=== PATIENT | male | born 1990 | race Caucasian/White ===

== ENCOUNTER 2020-08-22 22:13 | Emergency (ER) | payer OTHER, SELFPAY ==
[2020-08-22 22:13] VITALS: BP 118/57; PULSE 89; RESP 16; TEMP 36.4; O2SAT 99; BMI 19.9
[2020-08-22] MEDS: Lidocaine 1% (20 ml mdv) 20 ML Vial INFILT (22:44)
--- NOTE | 2020-08-22 23:03 | EDS_ITS ---
HPI History of Present Illness Chief Complaint: Laceration Informant: patient Narrative Narrative: Patient presents with a laceration to his scalp. 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 No loss of conscious. No nausea vomiting. He denies any neurologic symptoms. PFSH PFSH no medical history Home Medications NK 08/22/20 [History Last Taken Unknown] Allergy/AdvReac Type Severity Reaction Status Date / Time No Known Allergies Allergy Verified 08/22/20 22:15 no surgical history (Noncontributory) Social History (Updated 08/22/20 @ 23:[address] Zack Guerrero, DO) Smoking Status: Never smoker substance use type: does not use ROS ROS ED Constitutional Constitutional ED: Denies chills or weight loss Eyes Eyes: Denies change in vision or diplopia ENT ENT ED: Denies ear pain, rhinorrhea or sore throat Cardiovascular Cardiovascular: Denies chest pain, orthopnea, palpitations or racing heartbeat Respiratory/Chest Respiratory/Chest: Denies cough, dyspnea or orthopnea Gastrointestinal Gastrointestinal: Denies abdominal pain, diarrhea, nausea or vomiting Genitourinary Genitourinary ED: Denies dysuria, hematuria or urinary frequency Musculoskeletal Musculoskeletal: Denies arthralgias or myalgias Integumentary Reports other Details: See history of present illness ; Denies abscess or rash Neurologic Neurologic: Denies headache(s) or weakness Psychiatric Psychiatric: Denies anxiety, depression, suicidal ideation or suicidal thoughts Endocrine Endocrinology: Denies polydipsia, polyphagia or polyuria Allergic/Immunologic Allergic/Immunologic ED: Denies mouth swelling, tongue swelling or urticaria EXAM Physical Exam Const Vital Signs: 08/22/20 22:13 Temperature 97.6 F L Temperature Source Temporal Pulse Rate 89 Respiratory Rate 16 Blood Pressure 118/57 L Blood Pressure Mean 77 Pulse Ox 99 Oxygen Delivery Method Room Air Positive well nourished and well developed General Appearance ED: well developed HEENT Reports normocephalic, head/scalp atraumatic and moist mucous membranes HEENT Narrative: There is a 4 cm lightening bolt-like laceration to the vertex of his scalp. No active bleeding. trauma Eyes PERRL and EOMs intact bilaterally Neck no lymphadenopathy, supple and no JVD Resp normal respiratory effort and clear to auscultation bilaterally Cardio regular rate, regular rhythm and no murmurs GI normal to inspection, nondistended, normoactive bowel sounds and non-tender Palpation: soft Back/Spine no CVA tenderness and normal ROM Extremity normal to inspection General Extremety ED: Negative for edema General Extremity: Negative for edema Neuro oriented x3 and CN's II-XII intact bilaterally Sensorium / Orientation: alert Motor Exam: strength 5/5 throughout Psych mental status grossly normal Mood & Affect: Negative for depressed or tearful Skin no rashes or lesions noted and no wounds PROC Procedures Lacerations Scalp laceration: Comment: Wound was locally anesthetized using 1% lidocaine. Was washed with Shur-Clens and explored. A total of 5 simple interrupted 4-0 Ethilon sutures were placed. Good wound edge approximation was obtained. Bleeding cont rolled. MDM MDM MDM Narrative Medical decision making narrative: A 4 cm laceration was sutured. Please see the suture note. Wound care discussed with patient. Stitches will need to be removed in 5 to 7 days. Discharge Plan Triage Chief Complaint: Laceration ED Provider: Zack Guerrero Dx/Rx/DC Orders Clinical Impression: Laceration of scalp Instructions: ED Laceration: All Closures Prescriptions: No Action NK RF: 0 Referrals: Clinic,NOW [NON-STAFF] - 7 Days for suture removal Activity Restrictions/Additional Instructions: You may follow-up with primary care provider of your choice to establish primary care. Stitches will need to be removed in 7 days. Now clinic above is also available or he may return here to the emergency department Disposition Disposition: Home, self care
[2020-08-22 23:19] VITALS: BP 112/57; PULSE 74; RESP 17; O2SAT 98
== END 2020-08-22 23:20 | disposition home or self-care (01) ==
LOC: ED 23:16
PROVIDERS: Emergency Provider Emergency Medicine
DX: S01.01XA Laceration without foreign body of scalp, initial encounter (principal); W26.8XXA Contact with other sharp object(s), not elsewhere classified, initial encounter; Y93.89 Activity, other specified; Y92.009 Unspecified place in unspecified non-institutional (private) residence as the place of occurrence of the external cause; Y99.8 Other external cause status
CPT/HCPCS: 12002; 99283

== ENCOUNTER 2021-01-03 15:04 | Emergency (ER) | payer OTHER, SELFPAY ==
[2021-01-03 15:06] VITALS: BP 112/87; PULSE 83; RESP 18; TEMP 35.8; O2SAT 95; BMI 21.3
--- NOTE | 2021-01-03 16:36 | ED.VIS.LOWEX ---
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 States he recently started this job and he works ten+ miles per day, carrying a pack that weighs 40-50 pounds when it is full. He states he is unsure if he twisted his ankle/leg at 1 point or not, if he did he did not notice major pain immediately. He states he cannot remember because he does so much walking and stepping in and out of yards in areas. He does not have any medical problems. No history of blood clots. No swelling in the leg. No periods of immobilization recently. No history of clotting disorder in him or the family that he knows of. No fevers, chills, other systemic symptoms. He denies any tingling in the toes. The problem really is not of the ankle or the knee, it is in between and worse distally, and laterally, feels like the pain is in between the 2 bones. It is okay when he rests and just a little sore, but he really feels it when he walks. PFSH PFSH Medical History no medical history no medical history Home Medications NK 08/22/20 [History Last Taken Unknown] Allergy/AdvReac Type Severity Reaction Status Date / Time No Known Allergies Allergy Verified 01/03/21 15:05 Surgical History no surgical history no surgical history Social History Smoking Status: Never smoker substance use type: does not use ROS ROS ED Constitutional Constitutional ED: Denies chills or fever(s) Cardiovascular Cardiovascular: Denies chest pain at rest, chest pain with activity or dyspnea Respiratory/Chest Respiratory/Chest: Denies cough or dyspnea on exertion Musculoskeletal Musculoskeletal: Reports extremity pain; Denies neck pain Integumentary Denies Abrasions, rash or wounds Neurologic Neurologic: Denies paresthesias or weakness EXAM Physical Exam Const Vital Signs: 01/03/21 15:06 Temperature 96.5 F L Temperature Source Temporal Pulse Rate 83 Respiratory Rate 18 Blood Pressure 112/87 H Blood Pressure Mean 95 Pulse Ox 95 Oxygen Delivery Method Room Air Positive well nourished and well developed General Appearance ED: well developed and NAD Neck full ROM and supple Back/Spine normal ROM and normal to inspection Extremity Extremity Narrative: Diffusely tender in the distal half of the left lower leg but not including the ankle joint, most of the tenderness seems to be in the area of the soleus. He does have tenderness laterally, difficult to pinpoint if it is the fibula or soft tissues over/around it. No significant discomfort with forced dorsiflexion of the foot. All compartments soft and nondistended and symmetric. Intact dorsalis pedis pulse. Full range of motion all joints without any difficulty. No edema. No palpable cords. No focal tenderness in the gastrocnemius. No tenderness at the knee or proximally. Neuro oriented x3, no focal motor deficits and no sensory deficits noted Sensorium / Orientation: alert Psych mental status grossly normal and thought process normal Skin no wounds Rashes: no rashes MDM MDM MDM Narrative Medical decision making narrative: I think this is musculoskeletal. Differential includes muscle strain/overuse, stress fracture of the tibia, fibula, or both, I do not think this is vascular such as a DVT. I discussed this with him, he is in agreement it feels musculoskeletal. I agree the history is consistent with that as well as the exam. X-rays of the tibia/fibula were obtained. X-rays are unremarkable. Rest, anti-inflammatories, ice as needed is advised. He was given a work note saying so. If it improves after a few days, I think it is more likely to be something simple and straightforward such as a muscle ache. As I discussed with the patient negative x-rays within 1 week do not rule out the possibility of stress fracture and if he is no significant pain after about a week or so, he needs to follow-up and potentially have advanced imaging. He understands this. Radiography Diagnostic Testing: Radiology Impression Tibia/Fibula X-Ray 01/03/21 16:40 IMPRESSION: Normal x-ray examination of the tibia and fibula. Electronically Signed: Winston Garcia DO at 17:19 EDT Tel [phone], Service support , Discharge Plan Triage Chief Complaint: Lower Extremity Injury ED Provider: Anthony Mancilla Dx/Rx/DC Orders Clinical Impression: Acute pain of left lower extremity Instructions: Cunningham Splints, ED Muscle Strain, Extremity Prescriptions: No Action NK RF: 0 Stand Alone Forms: Work Status Form Primary Care Provider: Care Physician,No Primary Referrals: Didier Peck MD [STAFF PHYSICIAN] - 1 Week if not improving Care Physician,No Primary [Primary Care Provider] - Disposition Disposition: Home, Self Care
--- NOTE | 2021-01-03 16:40 | RAD_ITS ---
STUDY: X-RAY - LEFT TIBIA AND FIBULA REASON FOR EXAM: Male, 30 years old. Lower leg pain. Stands all day at work. TECHNIQUE: AP and lateral view(s) of the tibia and fibula were obtained. COMPARISON: None. FINDINGS: Normal visualized tibia. Normal visualized fibula. There is no acute fracture, dislocation or destructive osseous pathology. The knee and ankle are grossly normal. The soft tissue structures are unremarkable. RAD/Tibia & Fibula 2 Views IMPRESSION: Normal x-ray examination of the tibia and fibula. Electronically Signed: Winston Garcia DO at 17:19 EDT Tel [phone], Service support ,
== END 2021-01-03 18:20 | disposition home or self-care (01) ==
PROVIDERS: Emergency Provider Emergency Medicine
DX: M79.662 Pain in left lower leg (principal)
CPT/HCPCS: 73590; 99281; 99282

== ENCOUNTER 2023-06-19 13:27 | Emergency (ER) | payer OTHER, SELFPAY ==
[2023-06-19 13:29] VITALS: BP 140/97; PULSE 99; RESP 18; TEMP 36.1; O2SAT 97; BMI 24.4
--- NOTE | 2023-06-19 13:51 | EDS_ITS ---
HPI History of Present Illness Chief Complaint: Back Detail of Chief Complaint: Paresthesias of lower extremities Informant: patient Narrative Narrative: Patient presents to the emergency department with complaint of numbness and tingling to both feet and recently to the left hand thumb and index and middle finger. Symptoms started about 5 days ago. Patient states worse with standing and walking. Patient delivers mail for living. Patient states that yesterday he felt like his legs were weak and had to stop and hold onto things. At rest in bed really does not have any paresthesias. He denies any significant back pain. Denies pain radiating down his legs. He just describes more of a muscle soreness or aching in his upper legs. He denies any new medications. He states he had a sinus infection a couple weeks ago but has been fine since then. Denies fever or chills or sweats. No falls or injuries. PFSH PFS Medical History no medical history Home Medications NK 08/22/20 [History Last Taken Unknown] Allergy/AdvReac Type Severity Reaction Status Date / Time No Known Allergies Allergy Verified 06/19/23 13:28 Social History Smoking Status: Never smoker substance use type: does not use ROS ROS ED Review of Systems ROS Unobtainable: other Constitutional Constitutional ED: Reports lethargy; Denies chills, fever(s), sweats or weight loss Eyes Eyes: Denies blurry vision, change in vision or diplopia ENT ENT ED: Denies rhinorrhea or sore throat Cardiovascular Cardiovascular: Denies chest pain, orthopnea or racing heartbeat Respiratory/Chest Respiratory/Chest: Denies cough, dyspnea, dyspnea on exertion, orthopnea or sputum Gastrointestinal Gastrointestinal: Denies abdominal pain, diarrhea, nausea or vomiting Genitourinary Genitourinary ED: Denies dysuria, hematuria or urinary frequency Musculoskeletal Musculoskeletal: Reports myalgias; Denies arthralgias, back pain or neck pain Integumentary Denies abscess, Abrasions or rash Neurologic Neurologic: Reports paresthesias; Denies headache(s) or weakness Psychiatric Psychiatric: Denies anxiety, depression or suicidal thoughts Endocrine Endocrinology: Denies polydipsia, polyphagia or polyuria Hematologic/Lymphatic Hematologic/Lymphatic: Denies easy bleeding, easy bruising or lymphadenopathy Allergic/Immunologic Allergic/Immunologic ED: Denies mouth swelling, tongue swelling or urticaria EXAM Physical Exam Const Vital Signs: 06/19/23 13:29 Temperature 97.0 F L Temperature Source Temporal Pulse Rate 99 Respiratory Rate 18 Blood Pressure 140/97 H Blood Pressure Mean 111 Pulse Ox 97 Oxygen Delivery Method Room Air Positive well nourished and well developed General Appearance ED: well developed and NAD HEENT Reports TM's clear and moist mucous membranes normocephalic and atraumatic; Negative for trauma or tenderness Tympanic Membrane ED: Yes TM's clear Eyes PERRL and EOMs intact bilaterally General Eye ED: Negative for pale conjunctiva or scleral icterus Neck no lymphadenopathy, supple and no JVD General: Negative for tenderness Chest Wall inspection of chest normal and palpation of chest normal Chest: Negative for tenderness Resp normal respiratory effort and clear to auscultation bilaterally Effort and Inspection: Negative for respiratory distress or pain with movement Auscultation: Negative for rhonchi, wheezes or diminished lung sounds Cardio regular rate, regular rhythm, S1 normal heart sound, S2 normal heart sound and no murmurs Peripheral Pulses: pulses 2+ throughout GI normal to inspection, nondistended, normoactive bowel sounds, soft to palpation, non-tender, non-distended and no masses Back/Spine no CVA tenderness and no thoracic nor lumbar tenderness Extremity normal to inspection General Extremety ED: Negative for edema General Extremity: Negative for edema Neuro oriented x3, CN's II-XII intact bilaterally, no sensory deficits noted and gait normal Sensorium / Orientation: awake, alert, oriented to person, oriented to place and oriented to time Motor Exam: strength 5/5 throughout and strength abnormal Psych mental status grossly normal Skin no rashes or lesions noted and no wounds MDM MDM MDM Narrative Medical decision making narrative: Patient presents with paresthesias to his feet and occasionally to his left hand. No falls or injuries. 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 Minimal back discomfort. No weakness in the extremities but does complain of some muscle cramping and pain in the upper thighs and hamstrings. Patient denies recent illness. CBC with differential normal white count 7.4 with hemoglobin 16. Chemistries were unremarkable. BUN and creatinine were normal. Potassium and calcium and magnesium all were normal. Minimal elevation in his AST of 41 and ALT of 70. Alk phos was normal at 77. Total CPK was 629. Cli nically he looks well. Etiology of his paresthesias unclear. I did do COVID flu and RSV testing which was negative. Will refer to primary care physician for follow-up. Advised to return if condition should worsen anyway. Lab Data Attestation: I reviewed the patient's lab results. Labs: Laboratory Results - last 24 hr 06/19/23 13:55 WBC 7.4 RBC 5.36 Hgb 16.1 Hct 47.6 MCV 88.8 MCH 30.0 MCHC 33.8 RDW Std Deviation 41.5 RDW Coeff of Last 12.8 Plt Count 264 MPV 9.3 Immature Gran % (Auto) 0.400 Neut % (Auto) 50.9 Lymph % (Auto) 37.3 [place] % (Auto) 8.5 Eos % (Auto) 2.4 Baso % (Auto) 0.5 Absolute Neuts (auto) 3.7 Absolute Lymphs (auto) 2.75 Nucleated RBC % 0 Sodium 139 Potassium 4.4 Chloride 106 Carbon Dioxide 31.0 Anion Gap 2 L BUN 13 Creatinine 0.83 Estim Creat Clear Calc 158.32 Est GFR (MDRD) Af Amer 139 Est GFR (MDRD) Non-Af 115 BUN/Creatinine Ratio 15.7 Glucose 97 Calcium 9.3 Magnesium 2.2 Total Bilirubin 0.60 AST 41 H ALT 70 H Alkaline Phosphatase 77 Total Creatine Kinase 629 H Total Protein 7.6 Albumin 3.8 Globulin 3.8 Albumin/Globulin Ratio 1.0 Discharge Plan Triage Chief Complaint: Back ED Provider: Samanta Massey Dx/Rx/DC Orders Clinical Impression: Myalgia, Paresthesias Instructions: ED Myalgias, ED Paraesthesias Prescriptions: No Action NK Primary Care Provider: Care Physician,No Primary Referrals: John Caldwell MD [Med Staff - Active Staff] - 3-5 Days Care Physician,No Primary [Primary Care Provider] - Disposition Disposition: Home, Self Care
[2023-06-19 14:05] LABS: Absolute Lymphocyte Count 2.75 X10^3/uL (0.83-4.51); Absolute Neutrophil Count 3.7 X10^3/uL (2.0-7.7); Basophil# 0.04 X10^3/uL; Basophil% 0.5 % (0-1); Eosinophil# 0.18 X10^3/uL; Eosinophils% 2.4 % (0-5); Hematocrit 47.6 % (40-54); Hemoglobin 16.1 g/dL (13.0-16.5); Lymphocyte # 2.75 X10^3/ul (0.83-4.51); Lymphocyte % 37.3 % (19-41); Mean Corp Hgb Conc 33.8 g/dL (32-36); Mean Corpuscular Volume 88.8 fL (80-94); Mean Platelet Vol. 9.3 fl (6.2-12.0); Monocyte# 0.63 X10^3/uL; Monocyte% 8.5 % (0-10); NRBC Flagged by Analyzer 0 % (0-5); Neutrophil # 3.74 X10^3/uL (2.7-7.7); Neutrophil % 50.9 % (47-70); Platelet Count 264 K/mm3 (150-450); RBC Distribution Width CV 12.8 % (11.6-14.6); RBC Distribution Width SD 41.5 fl (35.1-43.9); Red Blood Count 5.36 M/mm3 (4.6-6.2); White Blood Count 7.4 K/mm3 (4.4-11.0)
[2023-06-19 14:26] LABS: AST(SGOT) 41 U/L (15-37); Alanine Aminotransfer ALT/SGPT 70 U/L (16-61); Albumin, Serum 3.8 g/dL (3.2-5.0); Alkaline Phosphatase 77 U/L (45-117); Anion Gap 2 (5-15); BUN 13 mg/dL (7-18); BUN/Creat Ratio 15.7 RATIO (10-20); CPK Total, Creatine Kinase 629 U/L (39-308); Calcium,Total 9.3 mg/dL (8.5-10.1); Chloride 106 mmol/L (98-107); Creatinine, Serum 0.83 mg/dL (0.70-1.30); EST Glomerular Filtration Rate 115 mL/min (>60); Est Glom Filt Rate - Afr Amer 139 mL/min (>60); Estimated Creatinine Clearance 158.32 ml/min; Globulin 3.8 g/dL (2.2-4.2); Glucose 97 mg/dL (74-106); Magnesium 2.2 mg/dL (1.6-2.6); Potassium 4.4 mmol/L (3.5-5.1); Protein, Total 7.6 g/dL (6.4-8.2); Sodium Level 139 mmol/L (136-145)
[2023-06-19 15:59] VITALS: BP 132/74; PULSE 72; RESP 16; TEMP 36.3; O2SAT 99
--- OUTSIDE RECORDS SUMMARY | 2023-06-19 21:47 | XMS RPT_ITS | CCD ---
Author Name Unknown Address [address] [place] [id number] Organization [facility] Care Team Providers Care Health Director Name Role Phone CAMILA HUNT Primary Care Unavailable MARC RUELAS Referring Unavailable CAMILA HUNT Referring Unavailable CAMILA HUNT Primary Care Unavailable MARC RUELAS Attending Unavailable Problems Problem Classification Problem Date Documented Da te Episodic/Chronic Other connective tissue disease (1 source) Plantar fascial fibromatosis; Translations: [Plantar fasciitis of left foot] Onset: 10-31-2022 Episodic Results Test Name Value Interpretation Reference Range Facil ity Encounters Encounter Date Encounter Type Care Provider Facility Start: 10-31-2022 End: 10-31-2022 ambulatory CAMILA HUNT Facility:[facility] Payers Date Payer Category Payer Private Health Insurance [id number] Progress note 10-31-2022 Note Date & Type Note Facility 10-31-2022 Note HNO ID: [id number] Author: Nadeen Cruz RT(R) Service: Radiology Author Type: Technologist Type: Progress Notes Filed: 10/31/2022 9:30 AM Note Text: Radiology Service Progress Note PATIENT NAME: Guilherme Florence DATE OF SERVICE: October 31, 2022 TIME: 9:22 AM PATIENT IDENTITY VERIFICATION COMPLETED USING TWO (2) IDENTIFIERS: Name and Date of confirmed by patient verbally. FALL SCREENING: Has the patient had 2 falls in the last year or 1 fall with injury or currently using an Ambulatory Assistive Device (Walker, Cane, Wheelchair, Crutches, etc.)? No PATIENT GENDER DATA: Male PATIENT RELEVANT IMPLANT DATA REVIEWED: Yes RADIOLOGY DEPARTMENT: General X-ray: Exam(s) Completed: Lower Extremity X-Ray(s): Foot, Left and Wt. Bearing PERIPHERAL IV DATA: Not applicable SIGNED BY: RT Alicia(R) October 31, 2022 9:22 AM [facility] Progress note 10-31-2022 Note Date & Type Note Facility 10-31-2022 Note HNO ID: [id number] Author: Marc Ruelas Service: ? Author Type: Physician Type: Progress Notes Filed: 10/31/2022 9:20 AM Note Text: Consultation requested by Dr. Hunt for an opinion regarding left heel pain. My final recommendations will be communicated back to the requesting physician by way of shared Medical record or letter to requesting physician via US mail. Initial Podiatric Office Visit: Chief Complaint: This 32 year old male who presents with chief complaint:left heel pain HPI Patient presents to clinic for evaluation of left foot Patient has plantar medial heel pain that has been present since February. Patient states the pain comes and goes but is becoming more frequent. He states the pain is generally the most severe the longer he is on his foot. Patient does treat with rest. He is not taking any medication for the pain. Patient also complains of scaling of his toes. He states at time, they will express a clear fluid. PAIN EVALUATION 10/31/2022 0833 Pain Level: 2 can get up to a 6/10 Pain Location: Heel-Left Description: Pressure Duration Amount of Time: 8 Duration Units: Months Frequency: Intermittent Intervention/Comfort measure: Relaxation;Reposition No results found for: HBA1C PCP: Camila Hunt MD No past medical history on file. No current outpatient medications on file. No current facility-administered medications for this visit. ALLERGIES No Known Allergies No past surgical history on file. FAMILY HISTORY Problem Relation Age of Onset other (Diverticulitis) Mother other (Diverticulitis) Father Stroke Paternal Grandmother Stroke Paternal Grandfather Social History Tobacco Use Smoking status: Never Smokeless tobacco: Never Vaping Use Vaping Use: Never used Substance Use Topics Alcohol use: Yes Comment: social Drug use: No REVIEW OF SYSTEMS GENERAL: Negative for Malaise, significant weight loss, fever RESPIRATORY: Negative for cough, wheezing and shortness of breath CARDIOVASCULAR: Negative for chest pain, leg swelling and palpitations GI: Negative for abdominal discomfort, blood in stools or black stools and change in bowel habits : Negative for dysuria, frequency and incontinence MUSCULOSKELETAL: Negative for joint pain or swelling, back pain, and muscle pain. SKIN: Negative for lesions, rash, and itching. HEMATOLOGY/LYMPHOLOGY Negative for prolonged bleeding, bruising easily, and swollen nodes. ENDOCRINE: Negative for cold or heat intolerance, polyuria, polydipsia and goiter. NEURO: negative Physical Exam: Constitutional: Pt is a well developed 32 year old male who is alert, oriented and cooperative Eyes: Following during examination. No redness or drainage. Respiratory: RR normal and nonlabored. Even breathing. No evidence of distress or shortness of breath. Psychology: Patient is engaged during conversation. Normal affect and mood. Does not appear depressed or anxious during encounter. Vascular: Dorsalis pedis and posterior tibial pulses palpable as b/l Capillary Fill time < 5 seconds to digits 1-5 b/l Skin temperature warm to warm proximal to distal b/l Hair growth present to digits Neurological: intact light touch/epicritic sensation - tinel b/l intact protective sensation no significant neurological deficits Dermatological: Nails 1-5 b/l appear normal. Webspaces clean and dry 1-4 b/l. Skin appears well hydrated and supple. good color, texture, turgor. No open lesions present. Scaling is noted to left 3rd toe and right 2nd toe Musculoskeletal/Orthopaedic: Patient has pain to palpation of left medial plantar heel Foot type is neutral structurally AJ ROM is full with knee extended and flexed 1st MPJ is full when loaded and no pain or crepitus are noted with ROM. MTJ, STJ are full and free of pain and crepitus. +5/5 muscle strength dorsiflexion, plantarflexion, inversion, eversion b/l Radiographs: ordered ASSESSMENT: (M72.2) Plantar fasciitis of left foot (primary encounter diagnosis) PLAN: 1. Initial Office Visit - A thorough review of the patient's PMH and Podiatric physical exam was completed. 2. Patient advised to perform stretching excercises, icing, and to make appropriate shoe gear changes to include wearing athletic-type shoes with supportive insoles. No barefoot walking. Patient also given written instructions on how to correctly perform the stretching of the achilles tendon/calf stretches, and the heel spur/plantar fasciitis regimen. 3. Patient advised to seek wide, deep toe box, accomodative, comfortable, lace-up, athletic/walking type footwear that includes motion control characteristics for support and cushion that need to be worn at all times when weight-bearing. Shoes should be tested for torsional stability as well as proper bending at the toebox rather than at the midfoot. Good quality shoes such as, but not limited to, New Bal (more content not included)... [facility] Progress note 10-31-2022 Note Date & Type Note Facility 10-31-2022 Note HNO ID: [id number] Author: Jane Sinclair RN Service: ? Author Type: Registered Nurse Type: Progress Notes Filed: 10/31/2022 9:20 AM Note Text: AMB ROOMING INTAKE FLOWSHEET DATA Pain Pain Level: 2 (can get up to a 6/10) Pain Location: Heel-Left Description: Pressure Duration Amount of Time: 8 Duration Units: Months Frequency: Intermittent Intervention/Comfort measure: Relaxation, Reposition Patient presents for Left heel pain, States that it has been intermittent for about 8 months. Patient states pain is worse when he walks, has not found anything that relieves pain. Patient also states that he has a rash to some of his toes that secrete clear fluid . [facility] Summary Purpose Family History No Family History Records Found Advance Directives No Advanced Directives Records Found Additional Source Comments (unrecognized sect ion and content) No Status Records Found INFORMATION SOURCE (unrecogn ized section and content) FOR RECORDS PERTAINING TO PATIENTS WHO ARE OR HAVE BEEN ENROLLED IN A CHEMICAL DEPENDENCY/SUBSTANCEABUSE PROGRAM, SOME INFORMATION MAY BE OMITTED. This clinical summary was aggregated from multiple sources. Caution should be exercised in using it in the provision of clinical care. This summary normalizes information from multiple sources, and as a consequence, information in this document may materially change the coding, format and clinical context of patient data. In addition, data may be omitted in some cases. CLINICAL DECISIONS SHOULD BE BASED ON THE PRIMARY CLINICAL RECORDS. [employer] provides no warranty or guarantee of the accuracy or completeness of information in this document.
== END 2023-06-19 16:00 | disposition home or self-care (01) ==
PROVIDERS: Emergency Provider Emergency Medicine; Visit Provider Emergency Medicine
DX: R20.2 Paresthesia of skin (principal); M79.10 Myalgia, unspecified site; M79.652 Pain in left thigh; M79.651 Pain in right thigh
CPT/HCPCS: 80053; 82550; 83735; 85025; 87631; 99283

== ENCOUNTER → 2023-06-26 | Outpatient (CLI) | payer OTHER, SELFPAY ==
--- NOTE | 2023-06-26 13:25 | RAD_ITS ---
INDICATION: Dorsalgia EXAMINATION/TECHNIQUE: X-RAY - XR Spine Lumbar Min 4 Views COMPARISON: No relevant prior comparison study available FINDINGS: VERTEBRAE: Preserved vertebral body height. No fracture. No spondylolisthesis. Preservation of the normal lumbar lordosis. No significant facet arthropathy. DISCS: Disc spaces are maintained. INCLUDED ABDOMEN: Included bowel gas pattern is non-obstructive. RAD/L/S Spine Min 4 Views IMPRESSION: No evidence of lumbar spinal fracture or spondylolisthesis. Electronically Signed: Pavithra Thomas MD at 8:51 EDT ,
[2023-06-26 15:24] LABS: Erythrocyte Sedimentation Rate 4 mm/hr (0-20)
[2023-06-28 14:10] LABS: ANTINUCLEAR ANTIBODIES DIRECT Negative (Negative)
== END | disposition home or self-care (01) ==
PROVIDERS: PCP Family Medicine; Referring Provider Family Medicine; Visit Provider Family Medicine
DX: M54.9 Dorsalgia, unspecified (principal)
CPT/HCPCS: 36415; 72110; 85652; 86038; 86140

== ENCOUNTER → 2023-07-17 | Outpatient (CLI) | payer OTHER, SELFPAY | END | disposition home or self-care (01) | LOC: MFPLAB 10:37 | PROVIDERS: PCP Family Medicine; Visit Provider Family Medicine | DX: Z00.00 Encounter for general adult medical examination without abnormal findings (principal) ==

== ENCOUNTER → 2023-07-23 | Outpatient (CLI) | payer OTHER, SELFPAY ==
--- NOTE | 2023-07-23 09:04 | NEURO ---
NCS and/or EMG Patient Report Ordering Doctor: John Caldwell DATE OF SERVICE: 07/23/23 Clinical Summary: 33 year old male patient with symptoms of numbness and tingling in the distal lower extremities with symptoms starting on 06/19/23. He also endorses back pain. Nerve Conduction Studies Summary: All SNAP's were absent bilaterally. The right peroneal-EDB CMAP distal latency was prolonged (~175% of the ULN) with reduced amplitude. The left peroneal-EDB CMAP distal latency was prolonged (~226% of the ULN). The right tibial-AH CMAP distal latency was prolonged (~120% of the ULN) with reduced amplitude. The left tibial-AH CMAP distal latency was prolonged (~139% of the ULN) with reduced amplitude. The right peroneal motor conduction velocity was reduced (75.5% of the LLN). The left peroneal motor conduction velocity was reduced (84% of the LLN). The right tibial motor conduction velocity was reduced (~98% of the LLN). The left tibial motor conduction velocity was reduced (90.5% of the LLN). Needle Examination Summary: Needle examination of select muscles of the bilateral lower extremities was normal. Impression: This is an abnormal study of the bilateral lower extremities. 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 While this lower limb electrodiagnostic study, by itself, does not fully meet criteria for either an acute or chronic demyelinating polyneuropathy such as GBS/AIDP or CIDP, further diagnostic testing, including EMG/NCS of the upper extremities and lumbar puncture for CSF analysis, is recommended to more thoroughly evaluate for such potential etiologies. A referral to neurology is also strongly recommended. Multi Select Codes Neurology Neurology Interp Codes: 15082-69 Musc test done w/n test comp (interp) (2) and 05821-86 Nrv cndj test 7-8 studies (interp)
== END | disposition home or self-care (01) ==
PROVIDERS: PCP Family Medicine; Referring Provider Family Medicine; Visit Provider Family Medicine
DX: R20.0 Anesthesia of skin (principal)
CPT/HCPCS: 95886; 95910

== ENCOUNTER → 2023-08-09 | Outpatient (CLI) | payer OTHER, SELFPAY ==
--- NOTE | 2023-08-09 08:48 | MRI_ITS ---
HISTORY: rule out MS. TECHNIQUE: Multiplanar and multisequence MR images of the brain were obtained before and after the intravenous administration of 17 cc Clariscan. 380 images. COMPARISON: None. FINDINGS: BRAIN PARENCHYMA: No significant signal abnormality or enhancing lesion in the brain parenchyma. No abnormal focus of restricted diffusion. No acute intracranial hemorrhage identified. CSF SPACES: Cerebral ventricles, cortical sulci, and other extra-axial CSF spaces within normal limits in size for age. No significant midline shift or other mass effect.No extra-axial fluid collection. VASCULAR SYSTEM: Major intracranial flow voids are maintained. PARANASAL SINUSES AND MASTOID AIR CELLS: No significant air fluid levels. ORBITS: Symmetric contents. Unremarkable signal and morphology of the optic nerves. MRI/Brain W/WO Contrast IMPRESSION: Unremarkable examination. No evidence for significant signal abnormality in the brain or enhancing intracranial mass. Electronically Signed: Tash Robins MD at 11:55 EDT ,
--- NOTE | 2023-08-09 08:48 | MRI_ITS ---
HISTORY: weakness,unknown etiology. TECHNIQUE: Multiplanar and multisequence MR images of the lumbar spine were obtained without intravenous contrast. 149 images. COMPARISON: XR 06/26/2023. FINDINGS: VERTEBRAE: Vertebral body heights maintained. No significant bone marrow signal abnormality. ALIGNMENT: No anterior or posterior subluxation. SPINAL CANAL: Normal morphology and position of the conus medullaris at T12. No gross epidural collection. INTERVERTEBRAL DISCS: T12-L1: No significant signal abnormality, posterior disc protrusion, central canal stenosis, or foraminal narrowing based on the sagittal images. L1-2, L2-3, L3-4: No significant signal abnormality, posterior disc protrusion, central canal stenosis, or foraminal narrowing. L4-5: Very mild disc bulge with annular fissure resulting in minimal narrowing of the thecal sac and bilateral foramina. L5-S1: Very mild posterior disc protrusion without significant central canal stenosis or foraminal narrowing. SOFT TISSUES: No paraspinal fluid collection. MRI/Spine Lumbar (Routine) IMPRESSION: Very mild degenerative disc disease of the lower lumbar spine without significant spinal canal stenosis or foraminal narrowing. Electronically Signed: Tash Robins MD at 11:24 EDT ,
--- NOTE | 2023-08-09 08:48 | MRI_ITS ---
HISTORY: rule out MS. TECHNIQUE: Multiplanar and multisequence MR images of the cervical spine were obtained without contrast. 302 images. COMPARISON: None. FINDINGS: VERTEBRAE: Vertebral body heights are maintained. No significant bone marrow signal abnormality. VERTEBRAL ALIGNMENT: Straightening of the cervical lordosis without anterior or posterior subluxation. SPINAL CORD: Cervical cord signal and morphology within normal limits. SOFT TISSUES: No prevertebral fluid collection. INTERVERTEBRAL DISCS: C2-3, C3-4: No significant signal abnormality, posterior disc protrusion, central canal stenosis, or foraminal narrowing. C4-5, C5-6: Minimal disc bulges without significant central canal stenosis or foraminal narrowing. C6-7, C7-T1: No significant signal abnormality, posterior disc protrusion, central canal stenosis, or foraminal narrowing. MRI/Spine Cervical (Routine) IMPRESSION: Very mild degenerative disc disease of the mid cervical spine without significant spinal canal stenosis or foraminal narrowing. No evidence for cervical spinal cord signal abnormality. Electronically Signed: Tash Robins MD at 11:27 EDT ,
== END | disposition home or self-care (01) ==
LOC: MRI 07:56
PROVIDERS: PCP Family Medicine; Referring Provider Orthopaedic Surgery; Visit Provider Orthopaedic Surgery
DX: G35 Multiple sclerosis (principal); R29.898 Other symptoms and signs involving the musculoskeletal system
CPT/HCPCS: 70553; 72141; 72148; A9575

== ENCOUNTER → 2023-09-11 | Outpatient (CLI) | payer OTHER, SELFPAY ==
[2023-09-11 18:05] LABS: CRP 8.09 mg/L (0.0-3.0)
== END | disposition home or self-care (01) ==
LOC: MFPLAB 16:46
PROVIDERS: PCP Family Medicine; Visit Provider Family Medicine
DX: G61.0 Guillain-Barre syndrome (principal)
CPT/HCPCS: 36415; 86140

== ENCOUNTER → 2024-07-30 | Outpatient (CLI) | payer OTHER, SELFPAY ==
[2024-07-30 12:55] LABS: Absolute Lymphocyte Count 1.72 X10^3/uL (0.83-4.51); Absolute Neutrophil Count 2.6 X10^3/uL (2.0-7.7); Basophil# 0.03 X10^3/uL; Basophil% 0.6 % (0-1); Eosinophil# 0.09 X10^3/uL; Eosinophils% 1.9 % (0-5); Hematocrit 48.2 % (40-54); Hemoglobin 16.1 g/dL (13.0-16.5); Lymphocyte # 1.72 X10^3/ul (0.83-4.51); Lymphocyte % 35.4 % (19-41); Mean Corp Hgb Conc 33.4 g/dL (32-36); Mean Corpuscular Hgb 29.7 pg (27.0-32.0); Mean Corpuscular Volume 88.9 fL (80-94); Monocyte# 0.42 X10^3/uL; Monocyte% 8.6 % (0-10); NRBC Flagged by Analyzer 0 % (0-5); Neutrophil # 2.59 X10^3/uL (2.7-7.7); Neutrophil % 53.3 % (47-70); Platelet Count 249 K/mm3 (150-450); RBC Distribution Width CV 12.1 % (11.6-14.6); RBC Distribution Width SD 39.6 fl (35.1-43.9); Red Blood Count 5.42 M/mm3 (4.6-6.2); White Blood Count 4.9 K/mm3 (4.4-11.0)
[2024-07-30 13:17] LABS: Erythrocyte Sedimentation Rate 1 mm/hr (0-20)
[2024-07-30 13:48] LABS: ALB/GLOB Ratio 1.6 RATIO (0.9-2.4); AST(SGOT) 23 U/L (<=37); Alanine Aminotransfer ALT/SGPT 28 U/L (<=46); Albumin, Serum 4.6 g/dL (3.5-5.0); Alkaline Phosphatase 64 U/L (40-129); Anion Gap 11 (5-15); BUN 17 mg/dL (4-19); BUN/Creat Ratio 18.9 RATIO (10-20); CPK Total, Creatine Kinase 293 U/L (24-195); Calcium,Total 9.6 mg/dL (7.6-11.0); Carbon Dioxide 26.5 mmol/L (21.0-32.0); Chloride 102 mmol/L (98-108); Creatinine, Serum 0.91 mg/dL (0.70-1.20); EST Glomerular Filtration Rate 116 (>60); Globulin 2.9 g/dL (2.2-4.2); Glucose 92 mg/dL (70-99); Magnesium 2.3 mg/dL (1.5-2.2); Potassium 4.5 mmol/L (3.3-5.1); Protein, Total 7.5 g/dL (5.9-8.4); Sodium Level 139 mmol/L (133-145); Total Bilirubin 0.86 mg/dL (0.00-1.30); Vitamin B12 809 pg/mL (180-914)
[2024-08-03 11:08] LABS: ANTINUCLEAR ANTIBODIES DIRECT Negative (Negative); Vitamin D 1,25-Dihydroxy 52.6 pg/mL (24.8-81.5)
[2024-08-05 12:08] LABS: Aldolase 5.4 U/L (3.3-10.3); Folate, RBC (Hct) Test 49.6 % (37.5-51.0); Folates, RBC Test 1004 ng/mL (>498); Free Kappa Light Chains 18.2 mg/L (3.3-19.4); Myoglobin, Serum 73 ng/mL (28-72)
== END | disposition home or self-care (01) ==
LOC: MTLAB 07:04
PROVIDERS: PCP Family Medicine; Referring Provider Psychiatry & Neurology Neurology; Visit Provider Psychiatry & Neurology Neurology
DX: R20.2 Paresthesia of skin (principal); G62.9 Polyneuropathy, unspecified; R29.898 Other symptoms and signs involving the musculoskeletal system
CPT/HCPCS: 36415; 80053; 82085; 82550; 82607; 82652; 82747; 83735; 83874; 83883; 84425; 84443; 85014; 85025; 85652; 86038; 86225; 86235

== ENCOUNTER → 2024-08-26 | Outpatient (CLI) | payer OTHER, SELFPAY ==
--- NOTE | 2024-08-26 10:55 | NEURO_ITS ---
NCS and/or EMG Patient Report Ordering Doctor: Abel Pepe DATE OF SERVICE: 08/26/24 Guilherme presents with complaints of intermittent numbness and tingling in the left upper limb. 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 Electrodiagnostic findings: Left median motor nerve demonstrates borderline prolonged distal latency with normal amplitude and conduction velocity. Left ulnar motor responses within normal limits including conduction across the elbow. Prolonged left peroneal distal latency with normal amplitude and conduction velocity. There is decreased left tibial motor conduction velocity. Prolonged left tibial and left peroneal F-wave?wave. Prolonged H?reflux bilaterally. Prolonged left median sensory latency at the wrist. Normal ulnar and radial sensory responses. Prolonged left sural latency normal left mariscal perficial peroneal response. Needle EMG testing was performed the left upper and left lower limb. All muscles tested showed no evidence of denervation with normal motor unit action potentials. Electrodiagnostic impression: This is an abnormal study. 1. Electrodiagnostic findings are suggestive of a mild sensorimotor peripheral polyneuropathy. Findings are markedly improved from testing which was performed last year. Multi Select Codes Neurology Neurology Interp Codes: 86438-82 Musc test done w/n test comp (interp) (2) and 83022-42 Nr cndj test 11-12 studies (interp)
== END | disposition home or self-care (01) ==
PROVIDERS: PCP Family Medicine; Referring Provider Psychiatry & Neurology Neurology; Visit Provider Psychiatry & Neurology Neurology
DX: R20.2 Paresthesia of skin (principal); G62.9 Polyneuropathy, unspecified
CPT/HCPCS: 95886; 95912